=== PATIENT | female | born 1980 | race African-American/Black ===

== ENCOUNTER 2017-05-16 10:16 | Outpatient (CLI) | payer OTHER ==
--- NOTE | 2017-05-16 12:47 | ULT ---
RENAL ULTRASOUND: INDICATIONS: Chronic kidney disease. FINDINGS: The right kidney measures 11.1 cm in length. The left kidney measures 8.7 cm in length. No hydronep hrosis. Cortical echogenicity may be slightly increased bilaterally. Cortical thickness is preserve d. No mass lesion identified. The bladder is mildly distended and appears unremarkable. IMPRESSION: Evidence of mildly increased cortical echogenicity. The renal ultrasound is otherwise unremarkable. POS: OFF
== END 2017-05-16 10:17 | disposition home or self-care (01) ==
LOC: ULT 10:16
PROVIDERS: ATTEND Internal Medicine Nephrology
DX: N18.3 Chronic kidney disease, stage 3 (moderate) (principal)
CPT/HCPCS: 76770

== ENCOUNTER 2018-05-02 08:48 | Day surgery (SDC) | payer OTHER ==
[2018-05-01 13:04] VITALS: BMI 27.5
== END 2018-05-02 09:45 | disposition home or self-care (01) ==
LOC: CT 08:48
PROVIDERS: ATTEND Internal Medicine Nephrology
DX: I12.9 Hypertensive chronic kidney disease with stage 1 through stage 4 chronic kidney disease, or unspecified chronic kidney disease (principal); E11.22 Type 2 diabetes mellitus with diabetic chronic kidney disease; N18.9 Chronic kidney disease, unspecified; R80.9 Proteinuria, unspecified; Z53.8 Procedure and treatment not carried out for other reasons; D64.9 Anemia, unspecified; Z79.4 Long term (current) use of insulin; M32.9 Systemic lupus erythematosus, unspecified

== ENCOUNTER 2018-05-09 14:09 | Observation (INO) | payer OTHER ==
--- NOTE | 2018-05-09 15:02 | CT ---
CT BRAIN WITHOUT CONTRAST: Date: 05/09/18 HISTORY: Left arm numbness. FINDINGS: Comparison made with exam of 03/08/05. No evidence of acute infarct, hemorrhage, midline shift, or abnormal extra-axial fluid collections ar e seen. The ventricular size is normal and the basilar cisterns are patent. The bony calvarium is int act. There is mucosal disease in the paranasal sinuses. IMPRESSION: No CT evidence of acute intracranial process. Findings discussed over the telephone with ER physician, Dr. Dash, at 1417 hours. CODE CR. POS: OFF
--- NOTE | 2018-05-09 15:21 | RAD ---
PORTABLE CHEST: Date: 05/09/18 HISTORY: Left arm numbness and chest pain. FINDINGS: Heart size and mediastinum are within normal limits. Lungs are clear of infiltrates. No change since the 04/22/18 study. IMPRESSION: No active intrathoracic disease. POS: TPC
[2018-05-09 16:43] LABS: #Eosinphils 0.1 thou/uL (0.0-0.7); #Lymphocytes 1.6 thou/uL (1.20-3.40); #Monocytes 0.5 thou/uL (0.11-0.59); #Neutrophils 6.4 thou/uL (1.40-6.50); %Basophils 0.4 % (0.0-1.0); %Eosinophils 0.8 % (0.0-10.0); %Lymphocytes 18.7 % (21.0-51.0); %Monocytes 6.2 % (0.0-10.0); %Neutrophils 73.8 % (42.0-75.0); Hemoglobin 11.1 g/dL (12.0-16.0); Mean Corpuscular HGB CONC 33.3 g/dL (32.0-36.0); Mean Corpuscular Hemoglobin 29.8 pg (27.0-31.0); Mean Corpuscular Volume 89.3 fL (78.0-98.0); Mean Platelet Volume 7.3 fL (7.4-10.4); Platelet Count 385 thou/uL (130-400); Red Blood Cell (RBC) Count 3.74 mill/uL (4.20-5.40); White Blood Cell (WBC) Count 8.7 thou/uL (4.8-10.8)
[2018-05-09 17:07] LABS: ALT (SGPT) 9 U/L (8-55); AST (SGOT) 14 U/L (5-34); Alkaline Phosphatase 78 U/L (40-150); Anion Gap 13 mmol/L (10-20); BUN (Urea Nitrogen) 30 mg/dL (7.0-18.7); Bilirubin, Total Less than 0.2 mg/dL (0.2-1.2); Calc. Creatinine Clearance 0 mL/min (70-130); Calcium 8.4 mg/dL (7.8-10.44); Carbon Dioxide 20 mmol/L (22-29); Chloride 107 mmol/L (98-107); Estimated GFR-MDRD 31; Globulin 2.8 g/dL (2.4-3.5); Glucose 381 mg/dL (70-105); Potassium 4.2 mmol/L (3.5-5.1); Protein, Total 5.8 g/dL (6.0-8.3); Sodium 136 mmol/L (136-145)
[2018-05-09] MEDS ORDERED: Fentanyl 100 MCG/2 ML VIAL ONE (17:18)
[2018-05-09] MEDS ORDERED: Senokot S 8.6-50 MG TAB PO PRN (17:48)
[2018-05-09] MEDS ORDERED: Acetaminophen 325 MG TAB PO PRN (17:48)
[2018-05-09] MEDS ORDERED: Dextrose 5% in Water 1,000 ML IV PRN (18:34)
[2018-05-09] MEDS ORDERED: Dextrose 50% Abboject 50 ML SYRINGE SLOW IVP PRN (18:34)
[2018-05-09] MEDS ORDERED: INSULIN PUMP FS PRN (18:46)
[2018-05-09] MEDS ORDERED: Aspirin 325 MG TAB ONE (19:35)
--- NOTE | 2018-05-09 19:40 | ULT ---
CAROTID DUPLEX ULTRASOUND: 05/09/18 HISTORY: Left sided weakness. Real time color doppler evaluation of the right and left carotid systems was performed. No significan t plaque formation seen. On the right side, peak systolic velocities of the common carotid were 70 cm/s. internal carotid velo [place] 98 cm/s, external carotid velocities 106 cm/s. On the left side, peak systolic velocities of the common carotid were 94 cm/s. internal carotid veloc ities 99 cm/s, external carotid velocities 85 cm/s. Vertebral flow is antegrade bilaterally. IMPRESSION: No evidence of hemodynamically significant stenosis of either internal carotid artery by NASCET crite carroll. POS: Yuliya
[2018-05-09] MEDS: Sodium Chloride 0.9% 1,000 ML IV SCH (20:29)
[2018-05-09] MEDS ORDERED: Famotidine 20 MG TAB ONE (21:36)
[2018-05-09] MEDS: Famotidine 20 MG TAB PO SCH (21:39)
[2018-05-09 23:42] VITALS: BMI 29.4
[2018-05-10] MEDS ORDERED: HumaLOG 300 UNITS/3 ML VIAL SC PRN ×2 (00:30)
[2018-05-10] MEDS ORDERED: HYDROcodone/Acetaminophen 5/325 mg Tablet PO PRN ×2 (00:31)
--- NOTE | 2018-05-10 00:55 | HP ---
PRIMARY CARE PHYSICIAN: Obdulia Miner in [place], [place]. PLASTIC MIXER: Dr. Raines. CHIEF COMPLAINT: Weakness and numbness on left side. HISTORY OF PRESENT ILLNESS: This is a 37-year-old female who presented to the emergency room by way of Dr. Raines's office for left upper and lower extremity numbness, facial numbness, and tingling onset at 12:30 today. The patient denied any vision changes. The patient reports that she has felt lightheaded, weak, and diaphoretic. Reports initially she is diabetic and thought it is her blood sugar, but when it was checked, her blood glucose was 121. The patient was seen at Dr. Raines's office for management of chronic kidney disease and in light of her symptoms, they sent her to the emergency room for further evaluation. NIH Stroke Scale is 4 on presentation to the emergency room. The patient on exam does report some decreased sensation to the left arm and leg and right side of face. Does have some mild weakness on left arm and leg compared to the right. PERTINENT PAST MEDICAL HISTORY: Includes chronic kidney disease, hypertension, diabetes. Does have a strong family history for endocrine and cardiac. Unsure if there is any family history of CVA. The patient will be admitted to the stroke unit for further evaluation. REVIEW OF SYSTEMS: CONSTITUTIONAL: Denies chills or fever. EYES: Denies any eye changes, vision changes, any eye discharge. ENT: Denies rhinorrhea or sore throat. CARDIOVASCULAR: Denies chest pain or palpitations. RESPIRATORY: Denies cough, weakness. GASTROINTESTINAL: Denies abdominal pain, nausea, vomiting, constipation. MUSCULOSKELETAL: Reports generalized weakness to the left side arm and leg. Denies any fall, injuries. SKIN: Denies any rash, any changes. NEUROLOGIC: Does report numbness and tingling to the left side of her face. Decreased sensation to her left arm, left leg. SKIN: Denies any skin changes. ENDOCRINE: Denies any changes to her normal blood glucose. Does endorse insulin pump. HEME/LYMPHATIC: Negative review of systems. All other review of systems negative except for what is listed in the HPI. PHYSICAL EXAMINATION: VITAL SIGNS: Blood pressure 136/93, pulse is 86, respirations 18, temp is 98.7, pulse ox 99% on room air. CONSTITUTIONAL: The patient appears nontoxic, appears pain free, is alert and oriented to person, place, and time. HEENT: Head is atraumatic and normocephalic. Eyes; eyelids are normal to inspection. Pupils are equally round and reactive to light. ENT; mouth exam is normal. Mucous membranes are moist. NECK: Normal range of motion. Trachea is midline. RESPIRATORY: Chest, breath sounds are clear. Chest expansion is equal. ABDOMEN: Nontender on palpation. No peritoneal signs. BACK: Normal inspection. Normal range of motion. EXTREMITIES: Upper extremities, normal range of motion. Inspection is normal. Strength 4/5 on the left. Strength 5/5 on the right. Sensation is decreased to the left. Radial pulses equal bilaterally. Lower extremities, normal inspection, normal range of motion. Strength is 4/5 on the left, 5/5 on the right. Pedal pulses are equal bilaterally. There is no edema noted. Sensation is decreased on the left. NEUROLOGIC: The patient is oriented to person, place, and time. Speech is normal. There is focal motor strength deficit on the left, focal sensory deficit on the left as well. SKIN: Warm, dry, normal in color. PSYCHIATRIC: Normal affect. PAST MEDICAL HISTORY: Heart murmur, has a leaky valve. History includes renal disease, chronic kidney disease stage 3, hypothyroidism, gastroparesis, hypertension, type 2 diabetes with an insulin pump. SURGICAL HISTORY: Hysterectomy, cholecystectomy. PSYCH HISTORY: None. SOCIAL HISTORY: Lives at home with family with her family. Denies any alcohol, drug use. Has no smoking history. ALLERGIES: NONE. CURRENT MEDICATIONS: 1. NovoLog insulin pump. 2. Lisinopril 40 mg p.o. once a day. 3. Metoprolol 100 mg p.o. b.i.d. 4. Amlodipine 5 mg p.o. b.i.d. 5. Furosemide 40 mg Sunday, Sunday, and Sunday; 20 mg Sunday, , Sunday, and Sunday. PERTINENT LABORATORY DATA: Sodium 136, potassium 4.2, chloride 107, carbon dioxide 20, gap is 13, BUN is 30, creatinine is 2.17. Estimated GFR is 31, glucose 381, calcium 8.4, bilirubin less than 0.2, protein 5.8, albumin 3.0, globulin 2.8. The rest of the liver enzymes are unremarkable. White blood cell count is 8.7, hemoglobin 11.1, hematocrit 33.4, and platelet count is 385. Portable chest, no active intrathoracic disease. CT brain, no evidence of acute intracranial process. ASSESSMENT AND PLAN: 1. We will obtain an MRI of the brain, echocardiogram, carotid Dopplers, give aspirin. 2. Chronic kidney disease. We will consult Dr. Raines as a courtesy. The patient's creatinine has bumped. We will trend. We will start gentle hydration. We will recheck creatinine in the morning. 3. Diabetes type 2. We will restart insulin pump if possible. We will add sliding scale insulin per orders. We will trend, check blood sugar before meals and at bedtime. 4. Hypertension. We will restart her home medications. 5. We will add gastrointestinal and deep venous thrombosis prophylaxis. 6. We will ask the stroke team to evaluate. 7. Hospital course will be dependent on clinical findings. Job ID: [id number]
[2018-05-10 06:30] LABS: #Eosinphils 0.1 thou/uL (0.0-0.7); #Lymphocytes 2.1 thou/uL (1.20-3.40); #Monocytes 0.7 thou/uL (0.11-0.59); #Neutrophils 3.7 thou/uL (1.40-6.50); %Basophils 0.5 % (0.0-1.0); %Eosinophils 1.8 % (0.0-10.0); %Lymphocytes 31.5 % (21.0-51.0); %Monocytes 10.2 % (0.0-10.0); Hemoglobin 10.4 g/dL (12.0-16.0); Mean Corpuscular Hemoglobin 28.9 pg (27.0-31.0); Mean Corpuscular Volume 87.8 fL (78.0-98.0); Mean Platelet Volume 7.3 fL (7.4-10.4); Platelet Count 358 thou/uL (130-400); Red Blood Cell (RBC) Count 3.58 mill/uL (4.20-5.40); White Blood Cell (WBC) Count 6.6 thou/uL (4.8-10.8)
[2018-05-10] MEDS ORDERED: Ondansetron PF 4 MG/2 ML Vial SLOW IVP PRN (06:36)
[2018-05-10 06:47] LABS: Anion Gap 13 mmol/L (10-20); BUN (Urea Nitrogen) 27 mg/dL (7.0-18.7); Calc. Creatinine Clearance 46 mL/min (70-130); Calcium 8.3 mg/dL (7.8-10.44); Carbon Dioxide 20 mmol/L (22-29); Cardiac Risk 3.9 (Less than 4.5); Chloride 110 mmol/L (98-107); Estimated GFR-MDRD 39; Glucose 145 mg/dL (70-105); Potassium 3.5 mmol/L (3.5-5.1); Sodium 139 mmol/L (136-145)
[2018-05-10] MEDS ORDERED: Furosemide 20 MG TAB PO SCH (09:00)
[2018-05-10] MEDS ORDERED: Non-Formulary Item 1 EACH (Insulin Aspart [Novolog] 100 UNIT) SQ SCH (09:00)
[2018-05-10] MEDS: Sodium Chloride 0.9% 1,000 ML IV SCH (10:00)
[2018-05-10] MEDS: Lisinopril 20 MG TAB PO SCH (10:00)
[2018-05-10] MEDS: Famotidine 20 MG TAB PO SCH ×2 (10:04→20:18)
[2018-05-10] MEDS: Metoprolol Tartrate 100 MG TAB PO SCH ×2 (10:04→20:18)
[2018-05-10] MEDS: Amlodipine 5 MG TAB PO SCH ×2 (10:05→20:19)
[2018-05-10] MEDS ORDERED: Aspirin 325 MG TAB PO SCH (11:30)
--- NOTE | 2018-05-10 13:02 | MRI ---
MRI BRAIN NONCONTRAST: 05/10/2018 HISTORY: A 37-year-old female with left upper extremity weakness and hypesthesia. FINDINGS: The ventricles are normal in size and configuration. There is no major intraaxial signal abnormality , restricted diffusion, midline shift or any other mass effect, recent intraaxial hemorrhage, or extr aaxial fluid collection. The cerebellar tonsils protrude inferior to the foramen magnum a distance o f approximately 6 mm. Images are degraded by patient motion. There is at least one and perhaps a fe w, punctate, 1 or 2 mm size foci of T2 hyperintensity in the centrum semiovale, at least on the left and probably bilaterally. These are nonspecific, but they probably represent either minimal chronic ischemic white matter changes or migraine lesions. IMPRESSION: 1. Cerebellar tonsillar ectopia: borderline or mild Chiari I malformation. 2. Otherwise no major brain pathology. jnr POS: ERYN
--- NOTE | 2018-05-10 14:45 | PDOC.PN ---
- Subjective Encounter Start Date: 05/10/18 Encounter Start Time: 14:43 Subjective: c/o left sided weakness persisting -: no speech impediment .C/O persistant facial droop - Objective MAR Reviewed: Yes Vital Signs & Weight: Vital Signs (12 hours) Temp Pulse Pulse Pulse Resp BP BP 05/10/18 11:50 97.8 F 75 18 05/10/18 10:05 88 05/10/18 10:00 162/72 H 05/10/18 08:50 85 98 169/72 H 05/10/18 08:40 85 98 169/72 H 05/10/18 07:50 97.6 F 84 18 05/10/18 04:00 97.8 F 76 18 BP BP Pulse Ox 05/10/18 11:50 132/61 100 05/10/18 10:05 05/10/18 10:00 05/10/18 08:50 197/98 H 05/10/18 08:40 197/98 H 05/10/18 07:50 148/65 H 100 05/10/18 04:00 121/58 L 100 Weight Weight 150 lb 8 oz I&O: 05/09/18 05/10/18 05/11/18 06:59 06:59 06:59 Intake Total 1045 Output Total 400 Balance 645 Result Diagrams: 05/10/18 06:00 05/10/18 06:00 Additional Labs: Accuchecks 05/10/18 05/10/18 05/10/18 10:35 06:20 04:17 POC Glucose 340 H 139 H 124 H 05/10/18 05/09/18 00:34 21:42 POC Glucose 308 H 342 H Radiology Reviewed by me: Yes (MRI-no CVA. Chiari type 1) Phys Exam - Physical Examination Constitutional: NAD HEENT: PERRLA, moist MMs, sclera anicteric, oral pharynx no lesions Neck: no nodes, no JVD, supple, full ROM Respiratory: no wheezing, no rales, no rhonchi, clear to auscultation bilateral Cardiovascular: RRR, no significant murmur, no rub Gastrointestinal: soft, non-tender, no distention, positive bowel sounds Musculoskeletal: no edema, pulses present left arm and leg weakness, Left facial droop Psychiatric: normal affect, A&O x 3 Dx/Plan (1) Left-sided weakness Code(s): R53.1 - WEAKNESS Status: Acute (2) DIXON (acute kidney injury) Code(s): N17.9 - ACUTE KIDNEY FAILURE, UNSPECIFIED Status: Acute Comment: Improving (3) Chiari I malformation Status: Chronic (4) DM type 1 (diabetes mellitus, type 1) Status: Chronic (5) HTN (hypertension) Code(s): I10 - ESSENTIAL (PRIMARY) HYPERTENSION Status: Chronic - Plan DVT proph w/SCDs add ASA+statin for ? CVA.MRI negative however for same -: unclear etiology of symptoms. Will consult Neurology -: doubt that symptoms are d/t Chiari but possible -: restart home meds. cont supportive care.Rehab eval for DC.Stroke team Inpt -: ECHO pending. carotid doppler WNL ,no stenosis.Care discussed w mom * .renal Fx improved.monitor Review of Systems - Review of Systems Constitutional: negative: fever, chills, sweats, weakness, malaise, other Respiratory: negative: Cough, Dry, Shortness of Breath, Hemoptysis, SOB with Excertion, Pleuritic Pain, Sputum, Wheezing Gastrointestinal: negative: Nausea, Vomiting, Abdominal Pain, Diarrhea, Constipation, Melena, Hematochezia, Other Genitourinary: negative: Dysuria, Frequency, Incontinence, Hematuria, Retention , Other Musculoskeletal: negative: Neck Pain, Shoulder Pain, Arm Pain, Back Pain, Hand Pain, Leg Pain, Foot Pain, Other Neurological: Weakness, Other - Medications/Allergies Allergies/Adverse Reactions: Allergies Allergy/AdvReac Type Severity Reaction Status Date / Time No Known Allergies Allergy Verified 05/09/18 23:47 Medications: Current Medications Acetaminophen (Tylenol) 650 mg PO Q4H PRN PRN Reason: Headache/Fever/Mild Pain (1-3) Last Admin: 05/10/18 00:21 Dose: 650 mg Hydrocodone Bitart/Acetaminophen (Caputa 5/325) 1 tab PO Q4H PRN PRN Reason: Moderate Pain (4-5) Hydrocodone Bitart/Acetaminophen (Caputa 5/325) 2 tab PO Q4H PRN PRN Reason: Moderate to Severe Pain (6-10) Amlodipine Besylate (Norvasc) 5 mg PO BID KAVON Last Admin: 05/10/18 10:05 Dose: 5 mg Aspirin (Aspirin) 325 mg PO QAM-WM [facility] Atorvastatin Calcium (Lipitor) 40 mg PO HS [facility] Dextrose/Water (Dextrose 50%) 25 gm SLOW IVP PRN PRN PRN Reason: Hypoglycemia Famotidine (Pepcid) 20 mg PO BID [facility] Last Admin: 05/10/18 10:04 Dose: 20 mg Furosemide (Lasix) 40 mg PO MoWeFr@0900 [facility] Last Admin: 05/10/18 10:05 Dose: 40 mg Furosemide (Lasix) 20 mg PO SuTuThSa@0900 [facility] Glucagon (Glucagon) 1 mg IM PRN PRN PRN Reason: Hypoglycemia Insulin Human Lispro (Humalog) 0 units SC .MODERATE SLIDING SC PRN PRN Reason: Moderate Correctional Scale Insulin Human Lispro (Humalog) 0 units SC .BEDTIME SLIDING SC PRN PRN Reason: Bedtime Correctional Scale Last Admin: 05/10/18 00:55 Dose: 4 unit Lisinopril (Zestril) 40 mg PO DAILY [facility] Last Admin: 05/10/18 10:00 Dose: 40 mg Metoprolol Tartrate (Lopressor) 100 mg PO BID [facility] Last Admin: 05/10/18 10:04 Dose: 100 mg Ondansetron HCl (Zofran) 4 mg SLOW IVP Q6H PRN PRN Reason: Nausea/Vomiting Last Admin: 05/10/18 07:02 Dose: 4 mg Insulin Pump Patient ('s Home Medication) 0 each FS PRN PRN PRN Reason: . Senna/Docusate Sodium (Senokot S) 2 tab PO BID PRN PRN Reason: Constipation
[2018-05-10 15:03] LABS: Creatinine, Urine Less than 20.00 mg/dL (47-110); Protein, Urine Random Quant 58 mg/dL (1-14)
--- NOTE | 2018-05-10 17:18 | CON ---
DATE OF CONSULTATION: REASON FOR CONSULTATION: Elevated creatinine. HISTORY OF PRESENT ILLNESS: This is a 37-year-old female, presented to hospital after she had a syncopal episode yesterday. The patient has had a nephrotic range proteinuria and had agreed to a kidney biopsy. PAST MEDICAL HISTORY: Significant for diabetes mellitus, CKD, proteinuria. MEDICATIONS: Home medications list reviewed. Hospital medications list reviewed. ALLERGIES: REVIEWED. PAST SURGICAL HISTORY: Significant for hysterectomy, cholecystectomy, and history of hypothyroidism. SOCIAL HISTORY: No alcohol or drug use. FAMILY HISTORY: Negative for ESRD. REVIEW OF SYSTEMS: A 15-point review of system was performed negative except for positives noted above. GENERAL: HEAD: NECK: No swelling or lumps. NOSE: No epistaxis or discharge. EYES: No diplopia or pain. RESPIRATORY: CARDIOVASCULAR: GASTROINTESTINAL: /REGIONAL DRIVER: MUSCULOSKELETAL: No joint pain. NEUROPSYCHIATIC SYSTEMS: No suicidal ideation. No ideation. SKIN: Denies any rash or ulcer. CONSTITUTIONAL: No fever or chills. PHYSICAL EXAMINATION: GENERAL: The patient is awake and alert. VITAL SIGNS: Pulse 85, breathing 16, blood pressure 130/61. GENERAL APPEARANCE AND MENTAL STATUS: Fair. HEAD/NECK: Normocephalic. Atraumatic. EYES: EOMI. No deformity. EARS: Clear. No ulcers. NOSE: Intact. No lesions. MOUTH: Clear. No discharge. THROAT: Clear. No exudate. LUNGS: Clear. No crackles. CARDIAC: S1, S2. No rub. ABDOMEN: Benign. Bowel sounds positive. GENITALIA/RECTUM: Esposito absent. BACK/EXTREMITIES: Edema 0+. NEUROLOGICAL: Alert and motor intact. SKIN: LYMPHATICS: LABORATORY DATA: Labs show creatinine of 1.7. ASSESSMENT AND PLAN: 1. Chronic kidney disease, stage 3, with acute kidney injury, stable. 2. Proteinuria with serological workup negative for lupus. We will plan biopsy as an outpatient. 3. Anemia, stable. 4. Medication based on GFR, appropriate. Job ID: [id number]
[2018-05-10] MEDS: Atorvastatin Calcium 40 MG TAB PO SCH (20:19)
[2018-05-11 05:03] LABS: #Eosinphils 0.3 thou/uL (0.0-0.7); #Lymphocytes 2.9 thou/uL (1.20-3.40); #Monocytes 0.7 thou/uL (0.11-0.59); #Neutrophils 3.3 thou/uL (1.40-6.50); %Basophils 0.3 % (0.0-1.0); %Eosinophils 3.5 % (0.0-10.0); %Lymphocytes 40.3 % (21.0-51.0); %Monocytes 9.9 % (0.0-10.0); Hemoglobin 9.6 g/dL (12.0-16.0); Mean Corpuscular HGB CONC 33.1 g/dL (32.0-36.0); Mean Corpuscular Hemoglobin 29.3 pg (27.0-31.0); Mean Corpuscular Volume 88.7 fL (78.0-98.0); Mean Platelet Volume 6.9 fL (7.4-10.4); Platelet Count 339 thou/uL (130-400); RBC Distribution Width 13.1 % (11.5-14.5); Red Blood Cell (RBC) Count 3.29 mill/uL (4.20-5.40); White Blood Cell (WBC) Count 7.1 thou/uL (4.8-10.8)
[2018-05-11 05:35] LABS: Anion Gap 9 mmol/L (10-20); BUN (Urea Nitrogen) 29 mg/dL (7.0-18.7); Calc. Creatinine Clearance 41 mL/min (70-130); Calcium 8.5 mg/dL (7.8-10.44); Carbon Dioxide 25 mmol/L (22-29); Chloride 111 mmol/L (98-107); Estimated GFR-MDRD 34; Potassium 3.9 mmol/L (3.5-5.1); Sodium 141 mmol/L (136-145)
[2018-05-11 05:38] LABS: Glucose 52 mg/dL (70-105)
[2018-05-11] MEDS: Aspirin 325 MG TAB PO SCH (09:02)
[2018-05-11] MEDS: Amlodipine 5 MG TAB PO SCH ×2 (09:02→20:40)
[2018-05-11] MEDS: Famotidine 20 MG TAB PO SCH ×2 (09:04→20:40)
[2018-05-11] MEDS: Furosemide 20 MG TAB PO SCH (09:05)
[2018-05-11] MEDS: Lisinopril 20 MG TAB PO SCH (09:05)
[2018-05-11] MEDS: Metoprolol Tartrate 100 MG TAB PO SCH ×2 (09:06→20:40)
[2018-05-11 09:41] LABS: Anion Gap 11 mmol/L (10-20); BUN (Urea Nitrogen) 28 mg/dL (7.0-18.7); Calc. Creatinine Clearance 41 mL/min (70-130); Calcium 8.5 mg/dL (7.8-10.44); Carbon Dioxide 22 mmol/L (22-29); Chloride 108 mmol/L (98-107); Estimated GFR-MDRD 34; Glucose 204 mg/dL (70-105); Potassium 4.1 mmol/L (3.5-5.1); Sodium 137 mmol/L (136-145)
--- NOTE | 2018-05-11 11:16 | PRG ---
DATE OF SERVICE: 05/11/2018 SUBJECTIVE: A 37-year-old female being seen for acute kidney injury. The patient denies any nausea, vomiting, or chest pain. OBJECTIVE: GENERAL: The patient is awake and alert. VITAL SIGNS: Afebrile, pulse 76, breathing 16, blood pressure 134/62. GENERAL APPEARANCE AND MENTAL STATUS: Fair. HEAD/NECK: Normocephalic. Atraumatic. EYES: EOMI. No deformity. EARS: Clear. No ulcers. NOSE: Intact. No lesions. MOUTH: Clear. No discharge. THROAT: Clear. No exudate. LUNGS: Clear. No crackles. CARDIAC: S1, S2. No rub. ABDOMEN: Benign. Bowel sounds positive. GENITALIA/RECTUM: Esposito absent. BACK/EXTREMITIES: Edema 0+. NEUROLOGICAL: Alert and motor intact. SKIN: LYMPHATICS: LABORATORY DATA: Labs show hemoglobin 9.6. Creatinine 1.9. ASSESSMENT AND PLAN: 1. Chronic kidney disease, stage 3, stable. 2. Acute kidney injury, stable. 3. Hypertension, stable. 4. Proteinuria. We will plan biopsy as an outpatient. Job ID: [id number]
--- NOTE | 2018-05-11 16:35 | EKG ---
Test Reason : EMERGENCYEXAM Blood Pressure : / mmHG Vent. Rate : 083 BPM Atrial Rate : 083 BPM P-R Int : 128 ms QRS Dur : 080 ms QT Int : 386 ms P-R-T Axes : 041 008 014 degrees QTc Int : 453 ms Normal sinus rhythm Moderate voltage criteria for LVH, may be normal variant Borderline ECG Confirmed by BEN VIEIRA DO ([id number]), photography editor ABIMAEL RIOS ([id number]) on 05/11/2018 4:35:04 PM Referred By: Confirmed By:BEN VIEIRA DO
--- NOTE | 2018-05-11 19:03 | CON ---
DATE OF TELEMEDIICINE CONSULTATION: 05-11-18 KILN STOKER: FLAKO CHIEF COMPLAINT: Weakness and spell. HISTORY OF PRESENT ILLNESS: The patient is a 37-year-old lady. She felt like she had hot sweats yesterday and she was going to pass out. She kept going in and out for a good while and she had tingling in the mouth and left arm, which resolved after 30 minutes. She does not have the symptoms today. She went to her renal physician and she was asked to come to the hospital when she had the near syncope and tingling and sensory symptoms. She did not describe any weakness to us. PREVIOUS MEDICAL HISTORY: The patient has history of chronic kidney disease, diabetes, and hypertension. SURGICAL HISTORY: Negative. FAMILY HISTORY: Positive for her sister, who is 43 and has thyroid problems and COPD. Brother who is 13 has asthma and COPD. Mother at 44 from colon cancer. Father is 61 and has thyroid and heart problems. SOCIAL HISTORY: The patient lives with her . Does not smoke or drink. REVIEW OF SYSTEMS: PULMONARY: Negative for cough or shortness of breath. CARDIOVASCULAR: Negative for chest pain or palpitations. GI: Negative for vomiting, diarrhea, or nausea. GENITOURINARY: Negative for urinary frequency or bladder distention or burning while urinating. ENT: Negative for cough, sore throat, or nasal drainage. HEMATOLOGIC: Negative for bleeding diathesis. NEUROLOGICAL: Positive for left-sided numbness and dizziness. CURRENT LAB WORKUP: Lab reports white count 7.1, hemoglobin 9.6, hematocrit 29.2, platelets 339. Chemistry; sodium 141, potassium 3.9, chloride 111, bicarb 25, BUN 29, creatinine 1.99, glucose 52. Urinalysis, urine random protein is 58, creatinine less than 20, and her MRI of the brain was reviewed and it did not show any evidence of acute infarct. She had cerebellar tonsillar ectopia with borderline mild Chiari I malformation. She does have microvascular ischemic changes. Echocardiogram is pending. PHYSICAL EXAMINATION: VITAL SIGNS: Temperature 97.6, pulse 66, blood pressure was 143/64, respiratory rate 18, and O2 sats 100%. GENERAL APPEARANCE: Very nice lady. CHEST: Clear vesicular breathing. CARDIOVASCULAR: S1 and S2 heard. No murmurs. ABDOMEN: Soft and nontender. NEUROLOGIC: Higher intellectual functions. Normal orientation to time, place, and person. Cranial nerves 2 through 12 normal. Pupillary reaction at 2 mm bilaterally. Normal extraocular movements. No facial asymmetry. Tongue midline. No atrophy noted. Normal sensation of face bilaterally, and normal elevation of palate. Motor and bulk normal. Tone normal. Strength 5/5 on the right side, left side was 4/5. Muscle groups tested in iliopsoas, hamstrings, quadriceps, ankle dorsiflexion, plantarflexion, deltoid, biceps, triceps, wrist extension and flexion, finger extension and flexion. Sensory examination, decreased sensation in the left arm and leg to touch. Cerebellar, normal [id number], but mild asymmetry and dysmetria in the left lower extremity. It was difficult for her to perform [id number]. IMPRESSION: The patient is a 37-year-old lady with neurological symptoms of near-syncope and mouth and left arm tingling, which has resolved after 30 minutes. She has risk factors of diabetes, chronic kidney disease, and hypertension with regards to stroke risk factors. Her examination shows mild weakness on the left side along with some sensory symptoms on the left side in the arm and leg only and not involving the face. Her MRI did not show an acute stroke. In this setting , I would like to rule out cervical myelopathy. TREATMENT RECOMMENDATIONS: MRI of the C-spine, evaluation of lipid profile with triglycerides, HDL, cholesterol, and also check thyroid, TSH in the morning. I will follow up the patient with you. Job ID: [id number] MTDD
--- NOTE | 2018-05-11 20:20 | PRG ---
DATE OF SERVICE: 05/11/2018 SUBJECTIVE: The patient is a 37-year-old female with past medical history significant for type 2 diabetes mellitus, diabetic nephropathy with proteinuria , who presented to the hospital with complaints of left-sided upper and lower extremity weakness. Her MRI was negative for stroke, however, did show cerebellar tonsillar ectopia, borderline for mild Chiari 1 malformation. The patient continues to complain of both left upper and left lower extremity weakness. She is ambulating with a walker. She has been cleared with PT for outpatient therapy. She denies CP and SOB. No N/V. OBJECTIVE: VITAL SIGNS: Blood pressure 132/64, temperature 97.7, pulse is 76, respirations 16, O2 saturation is 100% on room air. GENERAL: Awake, alert, in no acute distress. HEENT: Head is normocephalic and atraumatic. NECK: No JVD. No carotid bruits. Trachea is midline. CV: S1 and S2. Regular rate and rhythm. No appreciable murmurs, rubs, or gallops. LUNGS: Regular respiratory rate and pattern. Clear to auscultation bilaterally. ABDOMEN: Positive bowel sounds. Soft and nontender. NEUROLOGIC: Cranial nerves 2 through 12 are grossly normal. She has +5/5 strength in right upper and lower extremities and +4/5 strength in left upper and lower extremity. ASSESSMENT: 1. Left upper and lower extremity weakness without sign of stroke on MRI. 2. Type 2 diabetes mellitus. 3. Diabetic nephropathy with proteinuria. 4. Hypertension. 5. Mild Chiari malformation on MRI. PLAN: Neurology has consulted and is recommending MRI of the C-spine to rule out any cervical myelopathy. We will continue to trend creatinine. Further recommendations based on imaging results. Continue aspirin and statin for now. Her cholesterol panel and thyroid function panel were within normal limits. Further recommendations based on hospital course. Job ID: [id number] [facility]
[2018-05-11] MEDS: Atorvastatin Calcium 40 MG TAB PO SCH (20:39)
[2018-05-12 05:56] LABS: Anion Gap 12 mmol/L (10-20); BUN (Urea Nitrogen) 29 mg/dL (7.0-18.7); Calc. Creatinine Clearance 41 mL/min (70-130); Calcium 8.6 mg/dL (7.8-10.44); Carbon Dioxide 23 mmol/L (22-29); Chloride 108 mmol/L (98-107); Estimated GFR-MDRD 34; Glucose 82 mg/dL (70-105); Potassium 3.9 mmol/L (3.5-5.1); Sodium 139 mmol/L (136-145)
--- NOTE | 2018-05-12 07:37 | MRI ---
CERVICAL SPINE MRI NONCONTRAST: Date: 05/12/18 INDICATION: Recent onset left side numbness. FINDINGS: The vertebral body heights and alignment of the cervical spine are maintained. There is mild degenera tive hypertrophy at the C1-2 level. Patient motion during the exam does limit evaluation. No acute marrow edema, disc space edema, or par aspinal soft tissue edema is seen. Incidental note of cerebellar tonsillar ectopia. C2-3: No significant central canal or neural foraminal stenosis. C3-4: No significant central canal or neural foraminal stenosis. C4-5: Mild disc bulge without significant central canal or neural foraminal stenosis. C5-6: There is no significant central canal or neural foraminal stenosis. C6-7: There is no significant compromise of the central canal. Uncinate process hypertrophy on the r ight results in mild right foraminal narrowing. No significant left foraminal stenosis. C7-T1: No significant central canal or neural foraminal stenosis. Evaluation of the cervical spinal cord reveals no intrinsic cord signal abnormality of significance. IMPRESSION: 1. Mild degenerative change within the cervical spine. 2. No abnormal intrinsic cord signal or expansile process of the cervical spinal cord identified by noncontrast imaging. 3. Incidental note of cerebellar tonsillar ectopia. POS: TEQUILA
[2018-05-12] MEDS: Amlodipine 5 MG TAB PO SCH (08:28)
[2018-05-12] MEDS: Famotidine 20 MG TAB PO SCH (08:28)
[2018-05-12] MEDS: Lisinopril 20 MG TAB PO SCH (08:28)
[2018-05-12] MEDS: Metoprolol Tartrate 100 MG TAB PO SCH (08:28)
[2018-05-12] MEDS: Furosemide 20 MG TAB PO SCH (08:28)
[2018-05-12] MEDS: Aspirin 325 MG TAB PO SCH (08:28)
[2018-05-12 10:22] LABS: Folate (Folic Acid) 5.1 ng/mL (7.0-31.4)
[2018-05-12 11:32] VITALS: BP 129/59; TEMP 97.6
--- NOTE | 2018-05-12 12:14 | PRG ---
DATE OF TELEMEDICINE SERVICE: 05/12/2018 [employer] OPERATOR HELPER : FLAKO CHIEF COMPLAINT: Numbness on the left side. INTERVAL HISTORY: The patient is reporting she is better. Her strength is better except for her left leg. At this time, she is stable. Numbness has improved. Current workup, MRI of the neck has been reviewed and she does not have any myelopathy on the MRI. There is no abnormal intrinsic cord signal. She does have mild degenerative changes in the cervical area and her lab workup; white count 7.1, hemoglobin 9.6, hematocrit 29.2, and platelets 339. Chemistry; sodium 139, potassium 3.9, chloride 108, BUN 29, bicarb 23, creatinine 2, and glucose is 82. Her echocardiogram is pending. PHYSICAL EXAMINATION: VITAL SIGNS: Temperature 98.6, blood pressure 143/65, and pulse is 76. NEUROLOGIC: Higher intellectual functions normal. Orientation to time, place, and person. Cranial nerves, normal extraocular movements. Sensation of the face is normal. No facial asymmetry noted. Tongue midline. Motor examination, bulk. Normal tone. Normal strength, 5/5 in upper and lower extremities on the right side and on the left side and 5-/5 in left upper extremity and 4/5 on the left lower extremity. IMPRESSION AND PLAN: The patient is a 37-year-old lady with likely microvascular ischemic event causing left-sided weakness, although her MRI of the brain is read as normal. Although her MRI brain did not show acute stroke, it is possible she has very mild ischemic event in the basal ganglia area and her neck MRI was negative. Carotid Doppler was negative for any occlusive event and her examination still shows mild left-sided weakness. Recommendations okay to discharge the patient to rehab with physical therapy and she can stay on aspirin and she will need to follow up with Dr. Roth as outpatient. Job ID: [id number] [facility]
--- NOTE | 2018-05-12 14:07 | PRG ---
DATE OF SERVICE: 05/12/2018 SUBJECTIVE: A 37-year-old female is being seen for acute kidney injury. The patient denies any nausea, vomiting, or chest pain. OBJECTIVE: GENERAL: The patient is awake and alert. VITAL SIGNS: Afebrile, pulse 77, breathing 16, and blood pressure 139/59. GENERAL APPEARANCE AND MENTAL STATUS: Fair. HEAD/NECK: Normocephalic. Atraumatic. EYES: EOMI. No deformity. EARS: Clear. No ulcers. NOSE: Intact. No lesions. MOUTH: Clear. No discharge. THROAT: Clear. No exudate. LUNGS: Clear. No crackles. CARDIAC: S1, S2. No rub. ABDOMEN: Benign. Bowel sounds positive. GENITALIA/RECTUM: Esposito absent. BACK/EXTREMITIES: Edema 0+. NEUROLOGICAL: Alert and motor intact. SKIN: LYMPHATICS: LABORATORY DATA: Labs show creatinine 2. Hemoglobin 9.6. ASSESSMENT AND PLAN: 1. Stage 4 chronic kidney disease, stable. 2. Hypertension, stable. 3. Anemia, stable. 4. Medication based on GFR appropriate. 5. Proteinuria. The patient will have an outpatient biopsy as an outpatient. Job ID: [id number]
--- NOTE | 2018-05-13 00:56 | DIS ---
DATE OF ADMISSION: 05/09/2018 DATE OF DISCHARGE: 05/12/2018 ALLERGIES: NO KNOWN DRUG ALLERGIES. CHIEF COMPLAINT: Left upper and lower extremity weakness along with facial numbness and tingling. FINAL DIAGNOSES: 1. Left upper and lower extremity weakness, likely secondary to microvascular ischemic event. 2. Type 2 diabetes mellitus, on insulin pump. 3. Chronic kidney disease stage 4, followed by Dr. Duncan. PROCEDURES PERFORMED: None. LAB RESULTS: Most recent CBC; hemoglobin 9.6 and hematocrit 29.2. Sodium 141, potassium 3.9, chloride 108, BUN 29, and creatinine 2, which is her baseline. Folate 5.1, vitamin B12 236. IMAGING RESULTS: Brain CT, no CT evidence of acute intracranial process. Carotid Doppler was negative for carotid artery stenosis or elevated velocities. Brain MRI, cerebellar tonsillar ectopia. Borderline or mild Chiari I malformation. Otherwise, no major brain pathology. Cervical spine MRI, evaluation of the cervical spinal cord reveals no intrinsic cord signal abnormality of significance. She did have a mild disk bulge without significant central canal or neural foraminal stenosis on C4-C5. CONSULTATIONS: 1. Dr. Blount of Neurology. 2. Dr. Raines of Nephrology. HOSPITAL COURSE: The patient is a 37-year-old female with past medical history significant for diabetes mellitus and stage 4 chronic kidney disease, who presented to the emergency room by way of Dr. Raines's office for left upper and lower extremity numbness, facial numbness, and tingling. The patient denied any vision changes. She presented to the emergency room for further evaluation and treatment. NIH Stroke Scale was 4 on presentation to the emergency room. Dr. Blount of Neurology was consulted, and diagnosed microvascular ischemic event in light of all imaging being negative. The patient continued to have some mild left upper and lower extremity weakness, but was able to ambulate well with a walker. She worked with physical therapy. The patient was okayed to discharge from Neurological standpoint on baby aspirin. She does have anemia of chronic disease, B12 was normal, however, folate was mildly low. PHYSICAL EXAMINATION: VITAL SIGNS: Blood pressure 129/59, O2 saturation 100% on room air. The patient is afebrile at 97.6, pulse is 77. GENERAL: She is awake and alert, comfortable. HEENT: Head, normocephalic and atraumatic. Mucous membranes are moist. NECK: No JVD. No carotid bruits. Trachea is midline. CV: S1, S2. Regular rate and rhythm. No appreciable murmurs, rubs, or gallops. LUNGS: Regular respiratory rate and pattern. Clear to auscultation bilaterally. ABDOMEN: Positive bowel sounds. Soft, nontender. NEUROLOGIC: Cranial nerves 2 through 12 grossly normal. She has +5/5 strength in right upper and lower extremities and +4/5 strength in left upper and lower extremities. CONDITION AT DISCHARGE: Stable. DISCHARGE MEDICATIONS: 1. Aspirin 81 mg daily, which is a new medication. 2. Atorvastatin 40 mg at bedtime, which is a new medication. 3. Folic acid 0.4 mg tablet, one tablet p.o. daily, which is a new medication. 4. She will continue metoprolol tartrate 100 mg p.o. b.i.d., lisinopril 40 mg daily, insulin per insulin pump, furosemide 20 mg daily p.r.n. swelling, and amlodipine 5 mg tablet one tablet p.o. b.i.d. DISCHARGE DISPOSITION: Home with outpatient physical therapy. PLAN: The patient will continue aspirin, statin, and aggressive blood glucose control. She will continue outpatient physical therapy 3 times per week. She will follow up with Dr. Roth as an outpatient. She also will follow up with Dr. Duncan, who is planning on doing a renal biopsy as an outpatient sometime in the near future. All questions were answered according to the patient's satisfaction. We will discharge the patient home in stable condition. Job ID: [id number]
== END 2018-05-12 15:23 | disposition home or self-care (01) ==
LOC: ERS 14:09 → ERHOLD 17:08 → 2SE 23:07
PROVIDERS: ADMIT Emergency Medicine; ATTEND Emergency Medicine
DX: R53.1 Weakness (principal); R20.0 Anesthesia of skin; R20.2 Paresthesia of skin; I12.9 Hypertensive chronic kidney disease with stage 1 through stage 4 chronic kidney disease, or unspecified chronic kidney disease; E11.22 Type 2 diabetes mellitus with diabetic chronic kidney disease; N18.4 Chronic kidney disease, stage 4 (severe); E03.9 Hypothyroidism, unspecified; Z79.4 Long term (current) use of insulin; Z79.899 Other long term (current) drug therapy
CPT/HCPCS: 36416; 36556; 70450; 70551; 71045; 72141; 72170; 80048; 80053; 80061; 82570; 82607; 82746; 84156; 84443; 84484; 85025; 93005; 93306; 93880; 94760; 96361; 96367; 96374; 96375; G0378; J2405; J3010